=== PATIENT | female | born 1990 | race Caucasian/White ===

== ENCOUNTER 2017-11-18 07:10 | Inpatient (IN) | payer MEDICAID ==
[2017-11-18] MEDS ORDERED: LACTATED RINGERS 1,000 ML ONE (07:30)
[2017-11-18] MEDS ORDERED: SUBLIMAZE IV ONE (07:39)
[2017-11-18] MEDS ORDERED: LACTATED RINGERS 1,000 ML IV ONE (07:39)
[2017-11-18] MEDS ORDERED: PITOCin/NS 20 UNIT/1000ML DRIP 20 UNITS/1,000 ML BAG IV SCH ×2 (08:00→09:00)
[2017-11-18 08:07] LABS: Basophils % (Auto) 0.3 % (0.0-1.8); Eosinophils % (Auto) 0.3 % (0.0-4.3); Hemoglobin 11.3 gm/dl (10.1-14.3); Lymphocytes # (Auto) 2.4 K/mm3 (1.2-5.4); Lymphocytes % (Auto) 23.8 % (13.4-35.0); Mean Corpuscular HGB Conc 33 % (30-34); Mean Corpuscular Volume 77 fl (79-97); Monocytes % (Auto) 9.8 % (0.0-7.3); Platelet Count 189 K/mm3 (140-440); Red Blood Count 4.44 M/mm3 (3.65-5.03); Red Cell Distribution Width 14.2 % (13.2-15.2)
[2017-11-18] MEDS ORDERED: BRETHINE IVP PRN (08:09)
[2017-11-18] MEDS ORDERED: MINERAL OIL PO PRN (08:09)
[2017-11-18] MEDS ORDERED: SUBLIMAZE IV PRN (08:09)
[2017-11-18] MEDS ORDERED: BRETHINE SUB-Q PRN (08:09)
[2017-11-18] MEDS ORDERED: XYLOCAINE 2% INFILTRATI ONE (08:09)
[2017-11-18 08:23] LABS: Mean Corpuscular Hemoglobin 25 pg (28-32)
[2017-11-18] MEDS ORDERED: XYLOCAINE 2%/ EPI 1:200,000 INFILTRATI ONE (08:40)
[2017-11-18] MEDS ORDERED: LACTATED RINGERS 1,000 ML IV SCH (09:00)
[2017-11-18] MEDS ORDERED: LANSINOH TP PRN (09:02)
[2017-11-18] MEDS ORDERED: MILK OF MAGNESIA PO PRN (09:02)
[2017-11-18] MEDS ORDERED: ZOFRAN IV PRN (09:02)
[2017-11-18] MEDS ORDERED: DULCOLAX PR PRN (09:02)
[2017-11-18] MEDS ORDERED: PHENERGAN PR PRN (09:02)
[2017-11-18] MEDS ORDERED: BENADRYL PO PRN (09:02)
[2017-11-18] MEDS ORDERED: NORCO 5/325 PO PRN (09:02)
[2017-11-18] MEDS ORDERED: PHENERGAN PO PRN (09:02)
[2017-11-18] MEDS ORDERED: TUCKS PAD TP PRN (09:02)
[2017-11-18] MEDS ORDERED: SODIUM CHLORIDE FLUSH SYRINGE 10 ML IV NR (10:00)
[2017-11-18] MEDS ORDERED: POLYCILLIN/NS 2 GM/100 ML 2 GM/100 ML BAG IV ONE ×2 (10:26→22:00)
--- NOTE | 2017-11-18 10:28 | History and Physical Report ---
History of Present Illness Date of examination: 11/18/17 Date of admission: 11/18/17 07:10 Chief complaint: Labor History of present illness: 27 year old presents to L&D in active advanced labor. Patient reports her contractions began around 3:00 am. She also reports she is leaking clear fluid. Patient denies vaginal bleeding. She reports active movement. Patient received care at [facility] and records are available. LMP 02/12/2017. EDC 11/19/2017 (based on LMP). EGA 39 weeks, 6 days gestation. is significant for UTI (treated with Cipro), vitamin D insufficiency ( treated with Vitamin D), and family history of congenital heart defect (FOB nephew, pt. declined APA). labs are as follows: O+, antibody screen negative, pap smear negative, rubella immune, varicella immune, RPR nonreactive, hepatitis B surface antigen negative, HIV negative, HSV 2 negative, hemoglobin electrophoresis AA, gonorrhea negative, chlamydia negative, GBS negative, quad screen negative. Past History Past Medical History: no pertinent history Past Surgical History: no surgical history [facility]OCI[facility] History: denies: abnormal PAP smear, chlamydia, gonorrhea, hepatitis B, hepatitis C, herpes, HIV, syphilis Family/Genetic History: hypertension, cancer Social history: , lives with family, full code. denies: smoking, alcohol abuse, prescription drug abuse, IV drug use - Obstetrical History Expected Date of Delivery: 11/19/17 Actual Gestation: 39 Week(s) 6 Day(s) : 5 Para: 2 Hx # Term Pregnancies: 3 Number of Pregnancies: 0 Spontaneous Abortions: 2 Induced : 0 Number of Living Children: 2 Medications and Allergies Allergies Allergy/AdvReac Type Severity Reaction Status Date / Time No Known Allergies Allergy Unverified 07/21/13 11:59 Home Medications Medication Instructions Recorded Confirmed Last Taken Type No Known Home Medications [No 07/21/13 11/18/17 Unknown History Reported Home Medications] Active Meds: Active Medications Acetaminophen/Hydrocodone Bitart ([place] 5/325) 2 each PO Q6H PRN PRN Reason: Pain, Moderate (4-6) Bisacodyl (Dulcolax) 10 mg GA BID PRN PRN Reason: Constipation Diphenhydramine HCl (Benadryl) 25 mg PO Q6H PRN PRN Reason: Itching Ephedrine Sulfate (Ephedrine Sulfate) 10 mg IV Q2M PRN PRN Reason: Hypotension Fentanyl (Sublimaze) 100 mcg IV Q2H PRN PRN Reason: Labor Pain Oxytocin/Sodium Chloride (Pitocin/Ns 20 Unit/1000ml Drip) 20 units in 1,000 mls @ 0 mls/hr IV DIRECT AYAH Last Admin: 11/18/17 10:04 Dose: 999 mls/hr Lactated Ringer's (Lactated Ringers) 1,000 mls @ 125 mls/hr IV DIRECT AYAH Oxytocin/Sodium Chloride (Pitocin/Ns 20 Unit/1000ml Drip) 20 units in 1,000 mls @ 125 mls/hr IV DIRECT AYAH Ampicillin Sodium (Polycillin/Ns 2 Gm/100 Ml) 2 gm in 100 mls @ 100 mls/hr IV Q6HR ONE; Protocol Stop: 11/18/17 11:25 Ibuprofen (Motrin) 600 mg PO Q6H AYAH Magnesium Hydroxide (Milk Of Magnesia) 30 ml PO HS PRN PRN Reason: Constipation Mineral Oil (Mineral Oil) 30 ml PO QHS PRN PRN Reason: Constipation Multi-Ingredient Ointment (Lansinoh) 1 applic TP PRN PRN PRN Reason: Sore Nipples Ondansetron HCl (Zofran) 4 mg IV Q8H PRN PRN Reason: Nausea And Vomiting Promethazine HCl (Phenergan) 25 mg GA Q6H PRN PRN Reason: Nausea And Vomiting Promethazine HCl (Phenergan) 25 mg PO Q6H PRN PRN Reason: Nausea And Vomiting Sodium Chloride (Sodium Chloride Flush Syringe 10 Ml) 10 ml IV PRN NR Stop: 11/18/17 23:59 Terbutaline Sulfate (Brethine) 0.25 mg SUB-Q ONCE PRN PRN Reason: Hyperstimulation/Hypertonicity Terbutaline Sulfate (Brethine) 0.25 mg IVP ONCE PRN PRN Reason: Hyperstimulation/Hypertonicity [place]/Glycerin (Tucks Pad) 1 each TP PRN PRN PRN Reason: Hemorrhoid/cleansing/soothing Review of Systems All systems: negative (contractions and leaking of water) - Vital Signs Vital signs: Vital Signs Pulse BP 112 H 118/78 11/18/17 07:16 11/18/17 07:16 Temp Pulse Resp BP Pulse Ox 93 H 124/59 11/18/17 09:52 11/18/17 09:52 - Physical Exam Abdomen: Positive: normal appearance, soft. Negative: distention, tenderness, guarding, rigidity Genitourinary (Female): Positive: normal external genitalia, normal perenium. Negative: perineal/vulvar lesions Vagina: Positive: other (leaking clear fluid) Uterus: Positive: enlarged. Negative: tender Anus/Rectum: Positive: normal perianal skin Extremities: Positive: normal. Negative: tenderness, edema - Obstetrical FHR: category 1 Uterine Contraction Monitor Mode: External Cervical Dilatation: 7 Cervical Effacement Percentage: 80 station: 0 Uterine Contraction Pattern: Regular Uterine Contraction Intensity: Moderate Results Result Diagrams: 11/18/17 07:20 Abnormal lab results 11/18/17 Range/Units 07:20 MCV 77 L (79-97) fl MCH 25 L (28-32) pg [place] % (Auto) 9.8 H (0.0-7.3) % [place] # 1.0 H (0.0-0.8) K/mm3 All other labs normal. Assessment and Plan A: at 39 weeks, 6 days gestation. Active labor. GBS negative. P: Admit. Anticipate vaginal delivery.
[2017-11-18] MEDS: MOTRIN PO SCH ×3 (11:05→22:33)
[2017-11-18] MEDS ORDERED: POLYCILLIN 2,000 MG in NACL 0.9% 50 ML IV SCH (21:00)
[2017-11-18 21:48] LABS: Hematocrit 26.2 % (30.3-42.9); Hemoglobin 8.7 gm/dl (10.1-14.3)
[2017-11-19] MEDS: MOTRIN PO SCH ×2 (05:36→13:00)
[2017-11-19] MEDS ORDERED: BOOSTRIX IM ONE (06:00)
--- NOTE | 2017-11-19 16:22 | Progress Note ---
Assessment and Plan A: day 1 S/P . Anemia. P: Discharge patient home today. Advised pt. to continue her vitamin once per day and take iron supplement twice per day at home. Rx Motrin 800 mg, # 30, 1 po every 8 hours prn pain and Rx Ferrous Sufate 325 mg, #60, 1 po BID, 1 RF called to [facility] [address]. Discussed discharge instructions and warning signs in detail with patient. Advised pt. to avoid lifting, driving, heavy housework, avoid IC. Patient is to follow up at [facility] in 6 weeks and prn. Pt. voiced understanding of all instructions. Subjective - Subjective Date of service: 11/19/17 Principal diagnosis: day 1 S/P spontaneous vaginal delivery Interval history: day 1 S/P spontaneous vaginal delivery. Doing well. Patient desires discharge today. Patient is voiding without difficulty. She is ambulating well. She is tolerating a regular diet without nausea or vomiting. Patient denies headache, cough, dizziness, shortness of breath, chest pain, leg pain, abdominal pain, heavy vaginal bleeding, or any other problems. Patient reports: appetite normal, voiding normally, pain well controlled, flatus , ambulating normally [place]: doing well Objective - Vital Signs Latest vital signs: Vital Signs Temp Pulse Resp BP Pulse Ox 11/19/17 08:00 98.6 F 82 18 100/58 97 11/19/17 00:00 98.7 F 68 16 103/57 11/18/17 19:30 98.6 F 69 18 114/69 Intake and Output 11/19/17 11/19/17 11/19/17 07:59 15:59 23:59 Intake Total 300 Balance 300 Intake: Intake, Free Water 300 - Exam Cardiovascular: Present: Regular rate, Normal S1, Normal S2, No murmurs Lungs: Present: Clear to auscultation Abdomen: Present: normal appearance, soft. Absent: distention, tenderness, guarding, rigidity Uterus: Present: normal, firm, fundal height below umbilicus. Absent: bogginess , tenderness Extremities: Present: normal. Absent: tenderness, edema - Labs Labs: Abnormal lab results 11/18/17 Range/Units 21:15 Hgb 8.7 L (10.1-14.3) gm/dl Hct 26.2 L D (30.3-42.9) %
--- NOTE | 2017-11-19 16:28 | Discharge Summary ---
Providers - Providers Date of Admission: 11/18/17 07:10 Date of discharge: 11/19/17 Attending physician: YAJAIRA ROBERSON MD None Primary care physician: YAJAIRA ROBERSON MD Hospitalization Reason for admission: active labor Delivery: Episiotomy: none Laceration: 1st degree Incision: normal, dry, intact Other procedures: none complications: none Discharge diagnosis: IUP at term delivered baby: male Pertinent studies: Labs Hospital course: Normal hospital course Condition at discharge: Good Disposition: DC-01 TO HOME OR SELFCARE - Discharge Diagnoses (1) Term delivered Status: Acute Plan - Provider Discharge Summary Activity: routine, no sex for 6 weeks, no heavy lifting 4 weeks, no strenuous exercise Diet: routine Instructions: routine Additional instructions: Call your doctor immediately for: * Fever > 100.5 * Heavy vaginal bleeding ( >1 pad per hour) * Severe persistent headache * Shortness of breath * Reddened, hot, painful area to leg or breast Take your iron supplement twice per day. - Follow up plan Follow up: YAJAIRA ROBERSON MD [Primary Care Provider] - 6 Weeks
[2017-11-19 17:37] VITALS: BP 98/61
== END 2017-11-19 18:50 | disposition home or self-care (01) | DRG 775 ==
LOC: LD 07:10 → OB 10:28
PROVIDERS: ADMIT Obstetrics & Gynecology; ATTEND Obstetrics & Gynecology
PROC: 10E0XZZ Delivery of Products of Conception, External Approach (ICD-10-PCS; principal; 2017-11-18)
PROC: 0HQ9XZZ Repair Perineum Skin, External Approach (ICD-10-PCS; 2017-11-18)
DX: O66.0 Obstructed labor due to shoulder dystocia (principal); O70.0 First degree perineal laceration during delivery; O99.03 Anemia complicating the puerperium; D64.9 Anemia, unspecified; Z37.0 Single live birth; Z3A.39 39 weeks gestation of pregnancy; Z82.49 Family history of ischemic heart disease and other diseases of the circulatory system; Z80.9 Family history of malignant neoplasm, unspecified
CPT/HCPCS: 36415; 85014; 85018; 85025; 86592; 86850; 86900; 86901; 90471; 90715; J0290; J2590; J3010; J7120